=== PATIENT | female | born 2000 | race Caucasian/White ===

== ENCOUNTER → 2020-12-20 | Outpatient (CLI) | payer MEDICAID, OTHER | END | disposition home or self-care (01) | LOC: LABMAIN 19:12 | PROVIDERS: ATTEND Emergency Medicine | DX: Z03.818 Encounter for observation for suspected exposure to other biological agents ruled out (principal) | CPT/HCPCS: 87635 ==

== ENCOUNTER → 2020-12-22 | Outpatient (CLI) | payer MEDICAID, OTHER | END | disposition home or self-care (01) | LOC: LABWHC1 08:54 | PROVIDERS: ATTEND Emergency Medicine | DX: Z20.822 Contact with and (suspected) exposure to COVID-19 (principal) | CPT/HCPCS: 87635 ==

== ENCOUNTER 2021-01-28 12:49 | Emergency (ER) | payer MEDICAID ==
[2021-01-28 12:55] VITALS: TEMP 99
--- NOTE | 2021-01-28 13:30 | ED ---
Female Urogenital HPI - General Chief complaint: Vaginal Bleeding Stated complaint: possible miscarriage Time Seen by Provider: 01/28/21 12:57 Source: patient, RN notes reviewed, old records reviewed Mode of arrival: ambulatory Limitations: no limitations - History of Present Illness Initial comments: Patient is a 20-year-old female presenting to the emergency department with concerns for possible miscarriage. Patient took a home test about a week and a half ago which was positive. She states she had some light spotting yesterday which she did not think anything of as she has had this with her previous . She states today the bleeding has increased and she is having lower abdominal cramping as well. She is , COLORER is Dr. Palacios. She denies any chest pain or shortness of breath, no fevers or chills. She denies any abdominal surgeries in the past. She denies any dysuria. She has no further complaints. Her vital signs are stable upon arrival. - Related Data Home Medications Medication Instructions Recorded Confirmed Vit No.124/Iron/Folic 1 tab PO DAILY 02/15/15 01/28/21 [ Vitamin Tablet] Acetaminophen [Tylenol] 325 mg PO Q4H PRN 01/28/21 01/28/21 Allergies Allergy/AdvReac Type Severity Reaction Status Date / Time No Known Allergies Allergy Verified 01/28/21 13:52 Review of Systems ROS Statement: Those systems with pertinent positive or pertinent negative responses have been documented in the HPI. ROS Other: All systems not noted in ROS Statement are negative. Past Medical History Past Medical History: No Reported History History of Any Multi-Drug Resistant Organisms: None Reported Past Surgical History: Tonsillectomy Past Anesthesia/Blood Transfusion Reactions: No Reported Reaction Past Psychological History: No Psychological Hx Reported Smoking Status: Never smoker Past Alcohol Use History: None Reported Past Drug Use History: None Reported - Past Family History Mother Family Medical History: No Reported History General Exam - General Exam Comments Initial Comments: GENERAL: Patient is well-developed and well-nourished. Patient is nontoxic and in no acute distress. HEAD: Atraumatic, normocephalic. EYES: Pupils equal round and reactive to light, extraocular movements intact, sclera anicteric, conjunctiva are normal. Eyelids were unremarkable. ENT: Moist mucous membranes. NECK: Normal range of motion, supple without lymphadenopathy or JVD. LUNGS: Unlabored respirations. Breath sounds clear to auscultation bilaterally and equal. No wheezes rales or rhonchi. HEART: Regular rate and rhythm without murmurs, rubs or gallops. ABDOMEN: Soft, lower abdominal discomfort on palpation, normoactive bowel sounds. No guarding, no rebound. No masses appreciated. : Deferred MUSCULOSKELETAL: Normal extremities with adequate strength and normal range of motion, no pitting or edema. No clubbing or cyanosis. NEUROLOGICAL: Patient is alert and oriented x 3. SKIN: Warm, Dry, normal turgor, no rashes or lesions noted. Limitations: no limitations Course Vital Signs 01/28/21 01/28/21 12:52 16:15 Temperature 99.0 F Pulse Rate 93 78 Respiratory 20 16 Rate Blood Pressure 122/75 116/74 O2 Sat by Pulse 100 98 Oximetry Medical Decision Making - Medical Decision Making Patient is a 20-year-old female here with vaginal bleeding, cramping. She is apparently 5-6 weeks , positive home test about 2 weeks ago. , COLORER is Dr. Palacios. Labs are unremarkable, hCG Quant is 40.3 today. Ultrasound reveals no intrauterine seen at this time. This could be too early to visualize , a failed or an nonvisualized ectopic . There is a complex cyst in the left ovary. Blood type is A+. I discussed these findings with the patient. I recommended repeating her hCG in 48 hours, we'll give her a slip for this. She can follow up with her COLORER. Strict return parameters were discussed with parents verbalized understanding. - Lab Data Result diagrams: 01/28/21 13:42 01/28/21 13:42 Lab Results 01/28/21 01/28/21 01/28/21 Range/Units 13:42 13:42 13:42 WBC 7.6 (3.8-10.6) k/uL RBC 4.39 (3.80-5.40) m/uL Hgb 14.1 (11.4-16.0) gm/dL Hct 41.4 (34.0-46.0) % MCV 94.3 (80.0-100.0) fL MCH 32.2 (25.0-35.0) pg MCHC 34.1 (31.0-37.0) g/dL RDW 11.6 (11.5-15.5) % Plt Count 196 (150-450) k/uL MPV 7.6 Neutrophils % 63 % Lymphocytes % 25 % Monocytes % 5 % Eosinophils % 5 % Basophils % 1 % Neutrophils # 4.8 (1.3-7.7) k/uL Lymphocytes # 1.9 (1.0-4.8) k/uL Monocytes # 0.4 (0-1.0) k/uL Eosinophils # 0.4 (0-0.7) k/uL Basophils # 0.1 (0-0.2) k/uL Sodium 141 (137-145) mmol/L Potassium 3.9 (3.5-5.1) mmol/L Chloride 106 (98-107) mmol/L Carbon Dioxide 25 (22-30) mmol/L Anion Gap 10 mmol/L BUN 9 (7-17) mg/dL Creatinine 0.76 (0.52-1.04) mg/dL Est GFR (CKD-EPI)AfAm >90 (>60 ml/min/1.73 sqM) Est GFR (CKD-EPI)NonAf >90 (>60 ml/min/1.73 sqM) Glucose 79 (74-99) mg/dL Calcium 9.9 (8.4-10.2) mg/dL Total Bilirubin 0.5 (0.2-1.3) mg/dL AST 23 (14-36) U/L ALT 20 (4-34) U/L Alkaline Phosphatase 41 (38-126) U/L Total Protein 7.1 (6.3-8.2) g/dL Albumin 4.5 (3.5-5.0) g/dL HCG, Quant 40.3 mIU/mL Urine Color Light Yellow Urine Appearance Cloudy H (Clear) Urine pH 6.0 (5.0-8.0) Ur Specific [place] 1.003 (1.001-1.035) Urine Protein Negative (Negative) Urine Glucose (UA) Negative (Negative) Urine Ketones Negative (Negative) Urine Blood Large H (Negative) Urine Nitrite Negative (Negative) Urine Bilirubin Negative (Negative) Urine Urobilinogen <2.0 (<2.0) mg/dL Ur Leukocyte Esterase Negative (Negative) Urine RBC 1 (0-5) /hpf Urine WBC 4 (0-5) /hpf Ur Squamous Epith Cells 7 H (0-4) /hpf Amorphous Sediment Rare H (None) /hpf Urine Bacteria Rare H (None) /hpf Blood Type Blood Type Recheck Bld Type Recheck Status 01/28/21 Range/Units 13:42 WBC (3.8-10.6) k/uL RBC (3.80-5.40) m/uL Hgb (11.4-16.0) gm/dL Hct (34.0-46.0) % MCV (80.0-100.0) fL MCH (25.0-35.0) pg MCHC (31.0-37.0) g/dL RDW (11.5-15.5) % Plt Count (150-450) k/uL MPV Neutrophils % % Lymphocytes % % Monocytes % % Eosinophils % % Basophils % % Neutrophils # (1.3-7.7) k/uL Lymphocytes # (1.0-4.8) k/uL Monocytes # (0-1.0) k/uL Eosinophils # (0-0.7) k/uL Basophils # (0-0.2) k/uL Sodium (137-145) mmol/L Potassium (3.5-5.1) mmol/L Chloride (98-107) mmol/L Carbon Dioxide (22-30) mmol/L Anion Gap mmol/L BUN (7-17) mg/dL Creatinine (0.52-1.04) mg/dL Est GFR (CKD-EPI)AfAm (>60 ml/min/1.73 sqM) Est GFR (CKD-EPI)NonAf (>60 ml/min/1.73 sqM) Glucose (74-99) mg/dL Calcium (8.4-10.2) mg/dL Total Bilirubin (0.2-1.3) mg/dL AST (14-36) U/L ALT (4-34) U/L Alkaline Phosphatase (38-126) U/L Total Protein (6.3-8.2) g/dL Albumin (3.5-5.0) g/dL HCG, Quant mIU/mL Urine Color Urine Appearance (Clear) Urine pH (5.0-8.0) Ur Specific [place] (1.001-1.035) Urine Protein (Negative) Urine Glucose (UA) (Negative) Urine Ketones (Negative) Urine Blood (Negative) Urine Nitrite (Negative) Urine Bilirubin (Negative) Urine Urobilinogen (<2.0) mg/dL Ur Leukocyte Esterase (Negative) Urine RBC (0-5) /hpf Urine WBC (0-5) /hpf Ur Squamous Epith Cells (0-4) /hpf Amorphous Sediment (None) /hpf Urine Bacteria (None) /hpf Blood Type A Positive Blood Type Recheck A Pos Bld Type Recheck Status No Disposition Clinical Impression: Threatened Disposition: HOME SELF-CARE Condition: Stable Instructions (If sedation given, give patient instructions): Threatened Miscarriage (ED) Additional Instructions: Please return to the Emergency Department if symptoms worsen or any other concerns. Repeat beta hCG levels in 48 hours as discussed. Follow up with your COLORER. Is patient prescribed a controlled substance at d/c from ED?: No Referrals: None,Stated [Primary Care Provider] - 1-2 days Gamaliel Palacios MD [STAFF PHYSICIAN] - 1-2 days Time of Disposition: 16:02
[2021-01-28 13:59] LABS: Basophils # (A) 0.1 k/uL (0-0.2); Basophils % (A) 1 %; Eosinophils # (A) 0.4 k/uL (0-0.7); Eosinophils % (A) 5 %; HCT 41.4 % (34.0-46.0); HGB 14.1 gm/dL (11.4-16.0); Lymphocytes # (A) 1.9 k/uL (1.0-4.8); Lymphocytes % (A) 25 %; MCH 32.2 pg (25.0-35.0); MCHC 34.1 g/dL (31.0-37.0); MCV 94.3 fL (80.0-100.0); Mean Platelet Volume 7.6; Monocytes # (A) 0.4 k/uL (0-1.0); Monocytes % (A) 5 %; Neutrophils # (A) 4.8 k/uL (1.3-7.7); Neutrophils % (A) 63 %; Platelet Count 196 k/uL (150-450); RBC 4.39 m/uL (3.80-5.40); RDW 11.6 % (11.5-15.5); WBC 7.6 k/uL (3.8-10.6)
[2021-01-28 14:10] LABS: ALT 20 U/L (4-34); AST 23 U/L (14-36); African American GFR (CKD) >90 (>60 ml/min/1.73 sqM); Albumin 4.5 g/dL (3.5-5.0); Alkaline Phosphatase 41 U/L (38-126); Anion Gap 10 mmol/L; Blood Urea Nitrogen 9 mg/dL (7-17); Calcium 9.9 mg/dL (8.4-10.2); Carbon Dioxide 25 mmol/L (22-30); Chloride 106 mmol/L (98-107); Glucose 79 mg/dL (74-99); Non-African American GFR(CKD) >90 (>60 ml/min/1.73 sqM); Potassium 3.9 mmol/L (3.5-5.1); Sodium 141 mmol/L (137-145); Total Bilirubin 0.5 mg/dL (0.2-1.3); Total Protein 7.1 g/dL (6.3-8.2)
[2021-01-28 14:26] LABS: HCG,Quantitative Serum 40.3 mIU/mL
[2021-01-28 14:32] LABS: Amorphous Sediment,Urine Rare /hpf; Appearance,Urine Cloudy (Clear); Bacteria,Urine Rare /hpf; Bilirubin,Urine Negative (Negative); Blood,Urine Large (Negative); Color,Urine Light Yellow; Glucose,Urine (UA) Negative (Negative); Ketones,Urine Negative (Negative); Leukocyte Esterase,Urine Negative (Negative); Nitrite,Urine Negative (Negative); Protein,Urine Negative (Negative); RBC,Urine 1 /hpf (0-5); Specific Gravity,Urine 1.003 (1.001-1.035); Squamous Epithelial Cell,Urine 7 /hpf (0-4); Urobilinogen,Urine <2.0 mg/dL (<2.0); WBC,Urine 4 /hpf (0-5)
--- NOTE | 2021-01-28 14:59 | US ---
EXAMINATION TYPE: Ultrasound OB <= 14 weeks transvaginal DATE OF EXAM: 01/28/2021 2:37 PM COMPARISON: NONE CLINICAL HISTORY: 20-year-old female bleeding/cramping/5-6 wks preg. EXAM PERFORMED: Transvaginal (TV) and Transabdominal (TA) FINDINGS: EXAM MEASUREMENTS: GESTATIONAL AGE / DATING Physician Established: Not yet established Dates by LMP: LMP unknown Dates by First Scan: No previous this is first scan Dates by Current Scan for: Unable to date by today's study MATERNAL ANATOMY Uterus: 7.6 x 4.4 x 5.1cm Endometrial stripe: 9 mm Right Ovary: 2.0 x 1.5 x 1.4cm Left Ovary: 2.7 x 1.4 x 1.5cm. There is a complex cyst seen in left ovary measuring 1.3 x 1.4 x 1.4cm , probably a hemorrhagic corpus luteum with some retractile clot. Post CDS / Adnexa: wnl Moderate free fluid in cul de sac GESTATION / SURVEY No IUP seen at this time. IMPRESSION: 1. No intrauterine seen at this time. Correlate with beta-hCG levels. There is a beta-hCG t hreshold of 2000 for visualization of an intrauterine by transvaginal scanning. Current dif ferential considerations include too early to visualize , failed , nonvisualized ec topic . Appropriate serial beta-hCG recommended. Ultrasound follow-up to ensure the appearan ce of a normal. pole with cardiac activity. 2. Moderate cul-de-sac free fluid is nonspecific, probably physiologic.
[2021-01-28 16:16] VITALS: BP 116/74; PULSE 78; RESP 16
== END 2021-01-28 16:16 | disposition home or self-care (01) ==
LOC: EC 12:49
DX: O20.0 Threatened abortion (principal); Z3A.01 Less than 8 weeks gestation of pregnancy
CPT/HCPCS: 36415; 76801; 76817; 80053; 81001; 84702; 85025; 86900; 86901; 99284

== ENCOUNTER → 2021-01-31 | Outpatient (CLI) | payer MEDICAID | END | disposition home or self-care (01) | LOC: LABWHC1 16:53 | PROVIDERS: ATTEND Obstetrics & Gynecology | DX: O20.0 Threatened abortion (principal); Z3A.00 Weeks of gestation of pregnancy not specified | CPT/HCPCS: 36415; 84702 ==

== ENCOUNTER 2021-10-19 06:30 | Inpatient (IN) | payer MEDICAID, OTHER ==
[2021-10-19] MEDS ORDERED: TERBUTALINE 1 MG/ML VIAL SQ PRN (07:00)
[2021-10-19] MEDS ORDERED: LIDOCAINE 0.5% (PF) 5 MG/ML (50 ML SDV) SQ PRN (07:00)
[2021-10-19] MEDS ORDERED: OXYTOCIN 30 UNITS/500 ML NS 30 UNIT in SALINE 1 500ML.BAG IV SCH ×2 (07:00→21:00)
[2021-10-19] MEDS ORDERED: CARBOPROST TROMETHAMINE 250 MCG/ML 1 ML AMP IM PRN (07:00)
[2021-10-19] MEDS ORDERED: OXYTOCIN 10 UNIT/ML 1 ML VIAL IM PRN (07:00)
[2021-10-19] MEDS ORDERED: METHYLERGONOVINE 0.2 MG/ML 1 ML AMP IM PRN (07:00)
[2021-10-19 07:16] VITALS: RESP 16
[2021-10-19] MEDS: LACTATED RINGERS 1,000 ML IV SCH ×3 (07:17→16:44)
[2021-10-19 08:17] LABS: Basophils % (A) 0 %; Eosinophils # (A) 0.4 k/uL (0-0.7); Eosinophils % (A) 4 %; HCT 33.9 % (34.0-46.0); HGB 11.4 gm/dL (11.4-16.0); Lymphocytes # (A) 1.6 k/uL (1.0-4.8); Lymphocytes % (A) 19 %; MCH 31.9 pg (25.0-35.0); MCHC 33.5 g/dL (31.0-37.0); MCV 95.1 fL (80.0-100.0); Mean Platelet Volume 8.9; Monocytes # (A) 0.4 k/uL (0-1.0); Monocytes % (A) 5 %; Neutrophils # (A) 5.8 k/uL (1.3-7.7); Neutrophils % (A) 69 %; Platelet Count 193 k/uL (150-450); RBC 3.56 m/uL (3.80-5.40); RDW 14.6 % (11.5-15.5); WBC 8.3 k/uL (3.8-10.6)
[2021-10-19] MEDS ORDERED: BUTORPHANOL 1 MG/ML 1 ML VIAL IV PRN (08:50)
--- NOTE | 2021-10-19 08:55 | P.HPOB ---
History of Present Illness H&P Date: 10/19/21 Chief Complaint: 38-0/7 weeks, twin intrauterine the patient is a 20-year-old 3 para 1011 admitted at 38-0/7 weeks as established by an 8 week ultrasound. She is admitted for induction of labor with a known twin intrauterine , monochorionic/diamniotic. Her has been remarkably uncomplicated given her monochorionic/diamniotic twins with symmetrical growth throughout. The twins have been in vertex vertex presentation for the majority of the third trimester. Given her desire for vaginal , the decision was made to proceed with induction of labor at 38 weeks. Group B strep status is negative. On labor and delivery, all signs reassuring with a category 1 heart tracing for both twins. Obstetrical history: 3 para 1011 with 1 term vaginal delivery and one early miscarriage. Current statistics are listed in history present illness. EDC of 11/02/2021 was established by an 8 week ultrasound. Laboratory workup demonstrates a blood type of A+ with a negative antibody screen. Rubella status is immune. The remainder of laboratory workup was within normal limits. One hour Glucola was normal and group B strep status is negative. Gynecologic history: Unremarkable with no history of any infections to include STDs. Review of Systems review of systems is confined to history of present illness. Past Medical History Past Medical History: No Reported History History of Any Multi-Drug Resistant Organisms: None Reported Past Surgical History: Tonsillectomy Past Anesthesia/Blood Transfusion Reactions: No Reported Reaction Past Psychological History: No Psychological Hx Reported Smoking Status: Never smoker Past Alcohol Use History: None Reported Past Drug Use History: None Reported - Past Family History Mother Family Medical History: No Reported History Medications and Allergies Home Medications Medication Instructions Recorded Confirmed Type Vit No.124/Iron/Folic 1 tab PO DAILY 02/15/15 09/24/21 History [ Vitamin Tablet] Acetaminophen [Tylenol] 325 mg PO Q4H PRN 01/28/21 09/24/21 History Aspirin [Adult Low Dose Aspirin EC] 81 mg PO DAILY 09/23/21 09/24/21 History Omeprazole [PriLOSEC] 40 mg PO DAILY 09/23/21 09/24/21 History Allergies Allergy/AdvReac Type Severity Reaction Status Date / Time No Known Allergies Allergy Verified 10/19/21 06:59 Exam Vital Signs Temp Pulse Resp BP Pulse Ox 10/19/21 07:09 97.5 F L 61 16 131/82 98 Intake and Output 10/18/21 10/19/21 10/19/21 22:59 06:59 14:59 Other: Weight 83.915 kg general, this is a well-developed, well-nourished white female in no acute distress. Her heart has a regular rhythm and rate without murmur. Her lungs are clear to auscultation bilaterally in all jacques. Her abdomen is gravid, nondistended, has normal active bowel sounds, soft, nontender, and without any palpable masses aside from the uterine fundus. Her extremities are without any cyanosis, clubbing, or significant edema and are nontender to palpation bilaterally. Digital cervical examination temperature to surgery 2-3 cm dilated, 50% effaced, the vertex in presentation at -2 station. Bedside hand- held ultrasound confirms vertex/vertex presentation. Results Result Diagrams: 10/19/21 07:49 Abnormal Lab Results - Last 24 Hours (Table) 10/19/21 Range/Units 07:49 RBC 3.56 L (3.80-5.40) m/uL Hct 33.9 L (34.0-46.0) % Assessment and Plan (1) Twin gestation in third trimester Current Visit: Yes Status: Acute Code(s): O30.003 - TWIN PREG, UNSP NUM PLCNTA & AMNIO SACS, THIRD TRIMESTER SNOMED Code(s): 01460493 (2) Term Current Visit: Yes Status: Acute Code(s): Z34.90 - ENCNTR FOR SUPRVSN OF NORMAL , UNSP, UNSP TRIMESTER SNOMED Code(s): 17999947 Plan: Pitocin induction has been started and artificial rupture of membranes carried o ut. She will have close maternal and surveillance and expectant management will be practiced. She is a good candidate for either IV or epidural analgesia, whichever she may choose. Her intention would be to plan for a double setup delivery in the operating room to be prepared should the second twin vertex from vertex to some other position or should there be any heart tone concerns. All of this is been thoroughly discussed with the patient and her significant other.
[2021-10-19] MEDS ORDERED: ROPIVACAINE 100 MG, fentaNYL (PF). 200 MCG in SODIUM CHLORIDE 0.9% 76 ML EPIDURAL ONE (12:30)
[2021-10-19] MEDS ORDERED: HYDROCORTISONE 2.5% RECTAL CREAM 30 GM TUBE RECTAL PRN (20:49)
[2021-10-19] MEDS ORDERED: SIMETHICONE 80 MG CHEWABLE PO PRN (20:49)
[2021-10-19] MEDS ORDERED: diphenhydrAMINE 50 MG/ML 1 ML VIAL IVP PRN ×2 (20:49)
[2021-10-19] MEDS ORDERED: ZOLPIDEM 5 MG TAB PO PRN (20:49)
[2021-10-19] MEDS ORDERED: diphenhydrAMINE 25 MG CAP PO PRN (20:49)
[2021-10-19] MEDS ORDERED: HYDROcodone/APAP 5-325MG 1 EACH TAB PO PRN (20:49)
[2021-10-19] MEDS ORDERED: HYDROcodone/APAP 7.5-325MG 1 EACH TAB PO PRN (20:49)
[2021-10-19] MEDS ORDERED: LANOLIN CREAM 5 GM TUBE TOPICAL PRN (20:49)
[2021-10-19] MEDS ORDERED: BENZOCAINE/MENTHOL SPRAY 1 GM/SPRAY AEROSOL TOPICAL PRN (20:49)
[2021-10-19] MEDS ORDERED: diphenhydrAMINE 50 MG CAP PO PRN (20:49)
--- NOTE | 2021-10-19 20:56 | P.PROBDLV ---
Vaginal Delivery Note - . Vaginal Delivery Note: the patient is a 20-year-old 3 para 1011 admitted at 38-0/7 weeks for elective induction with known monochorionic diamniotic twins in the vertex/vertex presentation. Her has been uncomplicated aside from carrying twins. On labor and delivery, all signs reassuring with both heart rate tracings being category 1 throughout the entire day and presentation. Group B strep status is negative. On labor and delivery, she had Pitocin augmentation started and underwent artificial rupture of membranes on twin A after confirmation that the remained vertex/vertex in presentation. She made progress to approximately the active phase of labor where she had an epidural catheter placed for analgesia. She then made relatively slow progress in the early portion the active phase and then progressed very quickly to complete. She was moved to the operating room with both twins remaining category 1 regarding heart rate tracings. She was left on the labor bed immediately adjacent to the operating room table with the certified nurse postal clerk in place, ultrasound with a air technician for confirmation of presentations when necessary and a number of the nursing staff. She then developed the urge to push and pushed over the course of approximately 3 contractions to a normal spontaneous vaginal delivery of a viable baby girl weighing 6 lbs. 2 oz. with Apgars of 9 at 1 minute and 9 at 5 minutes in the direct occiput anterior position. After delivery, the cord was marked with a yellow cord clamp. The was passed resuscitative measures to the warmer. Bedside ultrasound confirmed that the vertex for twin B was in the pelvis and this was confirmed digitally. As the head descended in the pelvis, artificial rupture of membranes was carried out for clear fluid. She then pushed over the course of one or 2 contractions with the next sense of urge to a normal spontaneous vaginal delivery of a viable baby girl, twin B, weighing 5 lbs. 13 oz. with Apgars of 9 at 1 minute and 9 at 5 minutes again delivered in the direct occiput anterior position. The cord was then clamped with a white cord clamp to differentiate it from twin A. Kind of delivery for twin A was 2022 while twin B was delivered at 2027. The placenta was delivered spontaneously, intact, and grossly normal though clearly fused with an obvious single membrane dividing the 2 spaces likely confirming the diagnosis of monochorionic, diamniotic twins. Both had grossly normal three-vessel cords inserted at the far margin of the placental disc for each.examination of the perineum and vagina demonstrated no evidence of lacerations. The uterus was well contracted. Estimated blood loss for the entire case was approximately 250 mL. There were no complications. Both mother and the twin infants are resting comfortably in recovery having been taken back to their birthing suite.
[2021-10-19] MEDS: IBUPROFEN 600 MG TAB PO PRN (21:09)
--- NOTE | 2021-10-19 21:14 | US ---
EXAMINATION TYPE: US OB limited DATE OF EXAM: 10/19/2021 COMPARISON: NONE CLINICAL HISTORY: Twin gestation delivery. Twin gestation delivery. Verify presentation of Baby B aft er Baby A delivers. EXAM PERFORMED: Transabdominal (TA) No growth performed on today?s study per ordering physician SURVEY PRESENTATION of Baby B: Vertex Exam performed in OR during delivery for Baby B position only. IMPRESSION: Exam performed in OR during delivery for Baby B position only. 1 image submitted.
[2021-10-19] MEDS: ACETAMINOPHEN TAB 325 MG TAB PO PRN (23:21)
[2021-10-20] MEDS: IBUPROFEN 600 MG TAB PO PRN ×3 (04:10→19:23)
[2021-10-20 06:35] LABS: Basophils % (A) 0 %; Eosinophils # (A) 0.2 k/uL (0-0.7); Eosinophils % (A) 3 %; HGB 10.7 gm/dL (11.4-16.0); Lymphocytes # (A) 1.5 k/uL (1.0-4.8); Lymphocytes % (A) 16 %; MCH 31.8 pg (25.0-35.0); MCHC 33.3 g/dL (31.0-37.0); MCV 95.4 fL (80.0-100.0); Monocytes # (A) 0.5 k/uL (0-1.0); Monocytes % (A) 5 %; Neutrophils # (A) 7.1 k/uL (1.3-7.7); Neutrophils % (A) 74 %; Platelet Count 171 k/uL (150-450); RBC 3.35 m/uL (3.80-5.40); RDW 14.7 % (11.5-15.5); WBC 9.5 k/uL (3.8-10.6)
[2021-10-20] MEDS: ACETAMINOPHEN TAB 325 MG TAB PO PRN ×2 (07:54→17:10)
--- NOTE | 2021-10-20 09:53 | P.DS ---
Providers Date of admission: 10/19/21 06:43 Expected date of discharge: 10/20/21 Attending physician: Gamaliel Palacios Primary care physician: Stated None - Discharge Diagnosis(es) (1) Twin gestation in third trimester Current Visit: Yes Status: Acute (2) Term Current Visit: Yes Status: Acute (3) Normal spontaneous vaginal delivery Current Visit: Yes Status: Acute Hospital Course: the patient is a 20-year-old 3 para 1011 admitted at 38-0/7 weeks by good dating parameters perches admitted for induction of labor with known twin intrauterine , thought to be monochorionic/diamniotic. Her was uncomplicated given her twin gestation. Her twins have been in vertex/vertex presentation the entire third trimester and she has requested vaginal trial of labor. Group B strep status is negative. On labor and delivery, both twins had a category 1 heart rate tracing. She had Pitocin started followed by artificial rupture of membranes for twin A demonstrated an clear fluid. She made progress into the active phase of labor and an epidural catheter was placed. She ultimately progressed to complete and was moved to the operating room for double set up. Anesthesia was in place as was ultrasound and the appropriate nursing staff. She pushed quickly to a normal spontaneous vaginal delivery of twin A, a viable baby girl weighing 6 lbs. 2 oz. with Apgars of 9 at 1 minute and 9 at 5 minutes. Using the ultrasound the head was demonstrated to be entering the pelvis and could be confirmed with a vaginal examination. Once the head it entered into the pelvis, she underwent artificial rupture of membranes for clear fluid. She then fairly quickly again pushed to a normal spontaneous vaginal delivery of twin B, a viable baby girl weighing 5 lbs. 13 oz. with Apgars of 9 at 1 minute and 9 at 5 minutes. Her course was entirely unremarkable vital signs being stable and her temperature was afebrile throughout. She was deemed stable for discharge on day #1 and was discharged home to follow-up in the office in 6 weeks' time routinely. Discharge instructions included calling for any significantly increased bleeding or foul-smelling lochia, significantly increased fever abdominal pain, perineal complaints, breast complaints, or anything also concerned her. She additionally was instructed to have nothing in the vagina for at least 6 weeks time to include intercourse. She understood her instructions and agrees to follow up as noted above. Discharge medications included continued vitamins as she has opted to breast-feed. She addit ionally was to use [id number] analgesic pain medications as needed. Maternal blood type is A+ and rubella status is immune. Patient Condition at Discharge: Stable Plan - Discharge Summary New Discharge Prescriptions: No Action Vit No.124/Iron/Folic [ Vitamin Tablet] 1 tab PO DAILY Omeprazole [PriLOSEC] 40 mg PO DAILY Acetaminophen [Tylenol] 325 mg PO Q4H PRN PRN Reason: Pain Aspirin [Adult Low Dose Aspirin EC] 81 mg PO DAILY Discharge Medication List Vit No.124/Iron/Folic [ Vitamin Tablet] 1 tab PO DAILY 02/15/15 [History] Acetaminophen [Tylenol] 325 mg PO Q4H PRN 01/28/21 [History] Aspirin [Adult Low Dose Aspirin EC] 81 mg PO DAILY 09/23/21 [History] Omeprazole [PriLOSEC] 40 mg PO DAILY 09/23/21 [History] Follow up Appointment(s)/Referral(s): Gamaliel Palacios MD [STAFF PHYSICIAN] - 6 Weeks Discharge Disposition: HOME SELF-CARE
[2021-10-20] MEDS: SENNOSIDES-DOCUSATE SODIUM 1 EACH TAB PO SCH ×2 (13:01→19:25)
[2021-10-20 16:31] VITALS: BP 120/83; PULSE 65; TEMP 98
== END 2021-10-20 21:20 | disposition home or self-care (01) | DRG 807 ==
LOC: 4FBP 06:43
PROVIDERS: ADMIT Obstetrics & Gynecology; ATTEND Obstetrics & Gynecology
PROC: 10E0XZZ Delivery of Products of Conception, External Approach (ICD-10-PCS; principal; 2021-10-19)
PROC: 3E033VJ Introduction of Other Hormone into Peripheral Vein, Percutaneous Approach (ICD-10-PCS; 2021-10-19)
PROC: 4A0HXCZ Measurement of Products of Conception, Cardiac Rate, External Approach (ICD-10-PCS; 2021-10-19)
PROC: 10907ZC Drainage of Amniotic Fluid, Therapeutic from Products of Conception, Via Natural or Artificial Opening (ICD-10-PCS; 2021-10-19)
DX: O80 Encounter for full-term uncomplicated delivery (principal); O30.033 Twin pregnancy, monochorionic/diamniotic, third trimester; Z3A.38 38 weeks gestation of pregnancy; Z79.82 Long term (current) use of aspirin; Z37.2 Twins, both liveborn
CPT/HCPCS: 76815; 85025; 86850; 86900; 86901